=== PATIENT | female | born 1980 | race Caucasian/White ===

== ENCOUNTER → 2017-04-06 | Outpatient (CLI) | payer OTHER ==
[~2017-04-06] MED LIST: CETI10CA3 PO; COQ-30CA2 PO; ESCI10TA PO; HYDR-4107 PO; IBUP1TAB7 PO; MAGN400T2 PO; OXYC1TAB63 PO; PREV15CA20 PO; PROP40TA3 PO; RIBO1TAB2 PO
[2017-04-06 11:43] LABS: AUTOMATED NEUTROPHIL # 5.8 TH/MM3 (1.8-7.7); BASOPHIL # 0.1 TH/MM3 (0-0.2); BASOPHIL % 0.6 % (0.0-2.0); EOSINOPHIL # 0.2 TH/MM3 (0-0.4); EOSINOPHIL % 1.6 % (0.0-4.0); HEMATOCRIT 42.6 % (35.0-46.0); HEMO FLAGS DIFF FINAL; LYMPH % 35.4 % (9.0-44.0); LYMPHOCYTE # 3.7 TH/MM3 (1.0-4.8); MEAN CELL VOLUME 84.3 FL (80.0-100.0); MEAN CORPUSCULAR HEMOGLOBIN 29.7 PG (27.0-34.0); MEAN CORPUSCULAR HGB CONC 35.2 % (32.0-36.0); MONO % 6.8 % (0.0-8.0); NEUT % 55.6 % (16.0-70.0); PLATELET COUNT 430 TH/MM3 (150-450); RED BLOOD COUNT 5.05 MIL/MM3 (4.00-5.30); RED CELL DISTRIBUTION WIDTH 12.7 % (11.6-17.2); WHITE BLOOD COUNT 10.3 TH/MM3 (4.0-11.0)
[2017-04-06 11:51] LABS: BLOOD, URINE MOD (NEG); COMMENT (UR) CULT NOT INDICATED; CULTURE IF INDICATED CULT NOT INDICATED; GLUCOSE,URINE NEG (NEG); HYALINE CAST, URINE 1 /lpf (RARE); KETONE, URINE NEG (NEG); NITRITE,URINE NEG (NEG); SQUAMOUS EPITHELIAL CELL URINE <1 /hpf (0-5); URINE COLOR YELLOW (YELLW/STRAW)
[2017-04-06 12:23] LABS: ANION GAP 10 MEQ/L (5-15); BICARBONATE 21.8 MEQ/L (21.0-32.0); BLOOD UREA NITROGEN 10 MG/DL (7-18); CHLORIDE 107 MEQ/L (98-107); GLOMERULAR FILTRATION RATE 94 ML/MIN (>89); GLUCOSE,FASTING 83 MG/DL (74-99); POTASSIUM 3.9 MEQ/L (3.5-5.1); SODIUM (NA) 139 MEQ/L (136-145)
[2017-04-06 12:29] LABS: BHCG SCREEN QUALITATIVE LESS THAN 1 MIU/ML (0-5)
== END ==
LOC: CPRE 10:33
PROVIDERS: ATTEND Obstetrics & Gynecology
DX: Z01.812 Encounter for preprocedural laboratory examination (principal); N75.0 Cyst of Bartholin's gland
CPT/HCPCS: 36415; 80048; 81001; 84703; 85025

== ENCOUNTER → 2017-04-10 | Day surgery (SDC) | payer OTHER ==
[~2017-04-10] VITALS: Ht 152.4 cm; Wt 74.1 kg
[~2017-04-10] MED LIST changes: +*morphine SULFATE 8 MG/ML PERIprocedure ONLY ONE; +ACETAMINOPHEN 1000 MG/100 ML 100 ML IV ONE; +ACETAMINOPHEN/HYDROcodone 325 MG/5 MG TAB ONE; +ACETAMINOPHEN/HYDROcodone 325 MG/5 MG TAB PO ONE; +BUPIVACAINE HCL PF 0.5% 30 ML VIAL ONE; +BUPIVACAINE/EPINEPHRINE 0.25% 50 ML VIAL ONE; +CHLORHEXIDINE GLUCONATE 2 % 1 PACK (2 CLOTHS) TOPICAL PRN; +DO NOT ADM ANY ANTICOAGULANT DRUGS PRN; +INSULIN HUMAN REGULAR 1,000 UNITS/10 ML VIAL SQ PRN; +LACTATED RINGER'S 1000 ML IV PRN; +METOPROLOL TARTRATE 25 MG TAB PO PRN; +POVIDONE IODINE 5% (ANTISEPSIS KIT) 4 APPLICATIONS EACH NARE PRN; +SODIUM CHLORID 0.9% 500 ML IV PRN; +ceFAZolin 1,000 MG/NS 100 ML IV SCH
--- NOTE | 2017-04-10 10:44 | HHI.PR ---
Immediate Post Op Note Procedure Date: Apr 10, 2017 Pre Op Diagnosis: (1) Bartholin gland cyst Post Op Diagnosis: (1) Bartholin gland cyst Surgeon: Smita Hilliard Emergency Nurse(s): Yair Segundo [facility] Procedure: Exam under anesthesia, left bartholin gland removal Findings: left bartholin gland enlargement and induration, approx 3.5cm in size. Complications: none Specimen(s) removed: left bartholin gland Estimated blood loss: 15ml Anesthesia: LMA Drains: None Fluids: 650ml IVF Urinary Output (mLs): 100 Patient to: PACU Patient Condition: Good Smita Hilliard MD Apr 10, 2017 10:44
[2017-04-10 12:20] VITALS: BP 123/76; PULSE 70; RESP 18; TEMP 97.6; O2SAT 97
--- NOTE | 2017-04-10 19:06 | EKG ---
Date Performed: 04/10/2017 Time Performed: 09:22:51 PTAGE: 36 years EKG: Sinus rhythm NORMAL ECG NO PREVIOUS TRACING DOCTOR: Husesin Casanova Interpretating Date/Time 04/10/2017 19:05:00
--- NOTE | 2017-04-11 15:49 | MP ---
cc: SMITA HILLIARD MD DATE OF SURGERY: 04/10/2017 PREOPERATIVE DIAGNOSIS: Left Bartholin gland. POSTOPERATIVE DIAGNOSIS: Left Bartholin gland excision PROCEDURE PREFORMED: Left Bartholin gland excision. INDICATIONS: The patient is a 36 year-old who presented to the office two and half weeks ago for Bartholin's glands abscess. She had incision and drainage with minimal fluid expressed. She was given a two week course of antibiotics and comfort measures. She had initial relief of her discomfort which then recurred two weeks later she presented to the office for reevaluation. At that time re aspiration was performed and noted that there was no fluctuance or fluid to be removed. Given the induration of tissue and persistent discomfort. Discussion was held with the patient and removal of the Bartholin's gland. She was amendable to this option and risks, benefits and alternatives were discussed at length and consent signed and on chart prior to procedure. SURGEON Smita Hilliard MD. STACKER DRIVER: <<1:58>> MS 3. [facility]. ANESTHESIA: General LMA. ANTIBIOTICS: Ancef. DVT prophylaxis SCDs bilateral extremities. SPECIMEN Bartholin Gland. ESTIMATED BLOOD LOSS: 15 ml's. IV FLUIDS: 150 mls of lactated Ringer. URINE OUTPUT: 100 Mls at the end of the case. COMPLICATIONS None. COUNTS: Correct. PROCEDURE IN DETAIL: After informed consent the patient was taken to the operating room where general LMA was performed without complication. She was placed in candy cane stirrups. Perineum was prepped and draped in normal sterile fashion. Once they were injected, superior to the Bartholin gland cyst, to create a plane around the gland. An incision was made over the Bartholin's cyst in the vagina, Sharp dissection was used to reach the Bartholin's capsule. The capsule was followed up with the Metzenbaum scissors and blunt dissection as well the Bartholin's gland was removed the inspection of the area revealed some areas of penetration this was dissected away with Metzenbaum scissors. The size of the Bartholin's gland was approximately 3-1/2 cm. It was firm in consistency and had the appearance of a thyroid. The base of the defect was brought together first with a pursestring suture of 2-0 Vicryl the space was hemostatic. The rest of the defect was closed similar to a second degree perineal laceration and multiple layers to avoid any space and then a subcuticular stitch of the mucosa to approximate the tissue. Good hemostasis was noted. The bladder was emptied with a straight catheter. The patient placed in dorsal supine position. Anesthesia was reversed without complication. Smita Hilliard MD PE/zina /1:06 PM /3:27 PM
== END | disposition home or self-care (01) ==
LOC: HSDC 06:57 → EDUNIT# 09:00
PROVIDERS: ATTEND Obstetrics & Gynecology
DX: N75.0 Cyst of Bartholin's gland (principal); Z01.810 Encounter for preprocedural cardiovascular examination; I10 Essential (primary) hypertension; R01.1 Cardiac murmur, unspecified; K21.9 Gastro-esophageal reflux disease without esophagitis
CPT/HCPCS: 00940; 56740; 88304; 93005; J0131; J0690; J2270; J7120